=== PATIENT | female | born 1990 | race Caucasian/White ===

== ENCOUNTER 2022-07-06 02:27 | Inpatient (IN) | payer OTHER, SELFPAY ==
[2022-07-06] VITALS (43 sets, daily range): BP systolic 111–164; BP diastolic 53–88
[~2022-07-06] VITALS: Ht 162.6 cm; Wt 68.3 kg
[2022-07-06] MEDS ORDERED: OXYTOCIN DRIP 30 UNITS in IV 1 EA IV SCH (03:55)
[2022-07-06] MEDS ORDERED: METHYLERGONOVINE MALEATE 0.2MG/ML 1ML VIAL IM PRN (03:55)
[2022-07-06] MEDS ORDERED: LIDOCAINE 1% MDV 20ML VIAL INFIL PRN (03:55)
[2022-07-06] MEDS ORDERED: OXYTOCIN DRIP 30 UNITS in IV 1 EA IV PRN ×4 (03:55)
[2022-07-06] MEDS ORDERED: TRANEXAMIC ACID INJection 1,000 MG in NS 100 ML IV PRN (03:55)
[2022-07-06] MEDS ORDERED: ACET325C5 PO (04:44)
[2022-07-06] MEDS ORDERED: PRENTAB9 PO (04:44)
[2022-07-06] MEDS ORDERED: HOME MED LIST COMPLETE! XX SCH (04:45)
[2022-07-06 04:51] LABS: HEMATOCRIT 33.8 % (36.0-47.0); HEMOGLOBIN 11.6 g/dl (12.0-15.5); MEAN CORPUSCULAR HEMOGLOBIN 30.4 pg (27.0-33.0); MEAN CORPUSCULAR HGB CONC 34.3 g/dl (32.0-36.5); MEAN CORPUSCULAR VOLUME 88.5 fl (80.0-96.0); PLATELET COUNT, AUTOMATED 172 10^3/uL (150-450); RED BLOOD COUNT 3.82 10^6/uL (4.00-5.40); WHITE BLOOD COUNT 7.7 10^3/uL (4.0-10.0)
[2022-07-06] MEDS: LR 1,000 ML IV SCH ×2 (05:36→09:31)
[2022-07-06] MEDS ORDERED: EPIDURAL/PCA KEYS XX PRN (09:25)
[2022-07-06] MEDS ORDERED: diphenhydrAMINE 50MG/ML VIAL IV PRN (09:25)
[2022-07-06] MEDS ORDERED: FENTANYL/ROPIVACAINE/NACL BAG 100 ML EPIDURAL SCH (09:25)
[2022-07-06] MEDS ORDERED: ePHEDrine SULFATE 25 MG/5 ML(5MG/ML) SYRINGE IVP PRN (09:25)
[2022-07-06] MEDS ORDERED: ONDANSETRON 4MG 2ML VIAL IV PRN (09:25)
[2022-07-06] MEDS ORDERED: LR 500 ML IV PRN (09:25)
[2022-07-06] MEDS ORDERED: NALOXONE INJ 0.4MG/1ML VIAL IV PRN (09:25)
[2022-07-06] MEDS ORDERED: RHOGAM 300MCG (1500IU) INJ IM SCH (17:25)
[2022-07-06] MEDS ORDERED: DIBUCAINE 1% OINTMENT 30GM TOP PRN (17:25)
[2022-07-06] MEDS ORDERED: ANUSOL HC CREAM 30GM TOP PRN (17:25)
[2022-07-06] MEDS ORDERED: DOCUSATE SODIUM 100MG CAPSULE PO PRN (17:25)
[2022-07-06] MEDS: IBUPROFEN 800 MG TAB PO PRN (19:33)
[2022-07-07] MEDS: ACETAMINOPHEN 500 MG TAB PO PRN ×2 (05:40→19:53)
[2022-07-07 06:00] VITALS: BP 132/73
[2022-07-07] MEDS: PRENATAL VITAMINS CHEWABLE TABLET PO SCH (10:16)
[2022-07-07] MEDS: IBUPROFEN 800 MG TAB PO PRN (10:16)
[2022-07-07 11:25] VITALS: BP 119/78
[2022-07-07 18:00] VITALS: BP 119/68
[2022-07-08 06:00] VITALS: BP 111/58
[2022-07-08] MEDS: PRENATAL VITAMINS CHEWABLE TABLET PO SCH (08:16)
[2022-07-08] MEDS ORDERED: MEASLES,MUMPS,RUBELLA VACCINE INJ (MMR-II) SC.IMMUN ONE (09:00)
== END 2022-07-08 12:20 | disposition home or self-care (01) | DRG 807 ==
LOC: M LDO 02:27 → M LDI 03:42 → M OBS 18:51
PROVIDERS: ADMIT Obstetrics & Gynecology; ATTEND Obstetrics & Gynecology
PROC: 10E0XZZ Delivery of Products of Conception, External Approach (ICD-10-PCS; principal; 2022-07-06)
PROC: 0KQM0ZZ Repair Perineum Muscle, Open Approach (ICD-10-PCS; 2022-07-06)
DX: O70.1 Second degree perineal laceration during delivery (principal); Z37.0 Single live birth; Z3A.40 40 weeks gestation of pregnancy

== ENCOUNTER → 2024-03-02 | Outpatient (CLI) | payer BC ==
[~2024-03-02] MED LIST: ACET325C5 PO; PRENTAB9 PO
[2024-03-02 18:18] LABS: HEMATOCRIT 38.3 % (36.0-47.0); HEMOGLOBIN 12.9 g/dl (12.0-15.5); MEAN CORPUSCULAR HEMOGLOBIN 29.7 pg (27.0-33.0); MEAN CORPUSCULAR HGB CONC 33.7 g/dl (32.0-36.5); PLATELET COUNT, AUTOMATED 317 10^3/uL (150-450); RED BLOOD COUNT 4.35 10^6/uL (4.00-5.40); WHITE BLOOD COUNT 7.8 10^3/uL (4.0-10.0)
[2024-03-02 19:14] LABS: HIV 1&2 SCREEN NEGATIVE (NEGATIVE)
[2024-03-02 19:22] LABS: HEPATITIS C VIRUS ABY INDEX < 0.02 INDEX (<0.8)
[2024-03-02 21:24] LABS: GC DNA AMPLIFICATION NEGATIVE (NEGATIVE)
== END ==
LOC: M PLALAB 14:33
PROVIDERS: ATTEND Nurse Practitioner Family
DX: Z34.81 Encounter for supervision of other normal pregnancy, first trimester (principal)

== ENCOUNTER → 2024-04-26 | Outpatient (CLI) | payer BC | LOC: M RAD 14:04 | PROVIDERS: ATTEND Nurse Practitioner Family | DX: Z34.82 Encounter for supervision of other normal pregnancy, second trimester (principal); Z3A.20 20 weeks gestation of pregnancy ==

== ENCOUNTER → 2024-06-16 | Outpatient (CLI) | payer BC ==
[2024-06-16 10:39] LABS: HEMATOCRIT 36.6 % (36.0-47.0); HEMOGLOBIN 11.8 g/dl (12.0-15.5); MEAN CORPUSCULAR HEMOGLOBIN 29.7 pg (27.0-33.0); MEAN CORPUSCULAR HGB CONC 32.2 g/dl (32.0-36.5); MEAN CORPUSCULAR VOLUME 92.2 fl (80.0-96.0); PLATELET COUNT, AUTOMATED 268 10^3/uL (150-450); RED BLOOD COUNT 3.97 10^6/uL (4.00-5.40); WHITE BLOOD COUNT 7.7 10^3/uL (4.0-10.0)
[2024-06-16 11:06] LABS: GLUCOSE CHALLENGE TEST 1 HOUR 63 MG/DL (LESS THAN 140)
[2024-06-16 11:41] LABS: HIV 1&2 SCREEN NEGATIVE (NEGATIVE)
[2024-06-16 11:49] LABS: HEPATITIS C VIRUS ABY INDEX 0.02 INDEX (<0.8)
== END ==
LOC: M PLALAB 08:25
PROVIDERS: ATTEND Nurse Practitioner Family
DX: Z34.82 Encounter for supervision of other normal pregnancy, second trimester (principal)
CPT/HCPCS: 36415; 82950; 85027; 86780; 86803; 86850; 86900; 86901; 87389; J2790

== ENCOUNTER → 2024-06-22 | Outpatient (REF) | payer BC ==
[2024-06-22 14:25] LABS: Trichomonas vaginalis (AMP) NOT DETECTED (NEGATIVE)
[2024-06-22 14:49] LABS: GC DNA AMPLIFICATION NEGATIVE (NEGATIVE)
== END ==
LOC: M PLALAB 08:48
PROVIDERS: ATTEND Nurse Practitioner Family
DX: Z34.82 Encounter for supervision of other normal pregnancy, second trimester (principal)

== ENCOUNTER → 2024-11-30 | Outpatient (REF) | payer BC | LOC: M PLALAB 13:51 | PROVIDERS: ATTEND Obstetrics & Gynecology | DX: Z01.419 Encounter for gynecological examination (general) (routine) without abnormal findings (principal) ==